=== PATIENT | female | born 2000 | race Caucasian/White ===

== ENCOUNTER 2020-03-09 23:36 | Emergency (ER) | payer OTHER, MEDICAID ==
[~2020-03-09] VITALS: Ht 162.6 cm; Wt 98.4 kg
[2020-03-09 23:45] VITALS: BP 139/79
--- NOTE | 2020-03-09 23:49 | NUR ---
PT AMBULATED TO BED 2 WITH STEADY GAIT.
[2020-03-10] MEDS ORDERED: KETOROLAC 60 MG/2 ML VIAL IM ONE (00:10)
--- NOTE | 2020-03-10 01:14 | NUR ---
PT D/C'ED BY MD SAM
== END 2020-03-10 01:15 | disposition home or self-care (01) ==
LOC: MED 23:36
DX: S13.4XXA Sprain of ligaments of cervical spine, initial encounter (principal); Z88.0 Allergy status to penicillin; V49.50XA Passenger injured in collision with unspecified motor vehicles in traffic accident, initial encounter; Y93.89 Activity, other specified; Y92.89 Other specified places as the place of occurrence of the external cause; Y99.8 Other external cause status
CPT/HCPCS: 72050; 96372; 99283; J1885; Q0092